=== PATIENT | male | born 1985 | race Caucasian/White ===

== ENCOUNTER 2019-06-01 16:31 | Outpatient (CLI) | payer BC ==
[2019-06-01 17:08] LABS: #Basophils 0.1 thou/uL (0.0-0.2); #Eosinphils 0.1 thou/uL (0.0-0.7); #Lymphocytes 1.4 thou/uL (1.20-3.40); #Monocytes 0.7 thou/uL (0.11-0.59); #Neutrophils 5.7 thou/uL (1.40-6.50); %Basophils 0.8 % (0.0-1.0); %Eosinophils 1.6 % (0.0-10.0); %Lymphocytes 17.8 % (21.0-51.0); %Monocytes 8.1 % (0.0-10.0); %Neutrophils 71.7 % (42.0-75.0); Mean Corpuscular HGB CONC 35.3 g/dL (32.0-36.0); Mean Corpuscular Hemoglobin 31.7 pg (27.0-31.0); Mean Corpuscular Volume 89.7 fL (78.0-98.0); Mean Platelet Volume 7.9 fL (7.4-10.4); Platelet Count 234 thou/uL (130-400); RBC Distribution Width 11.6 % (11.5-14.5); Red Blood Cell (RBC) Count 4.75 mill/uL (4.70-6.10); White Blood Cell (WBC) Count 7.9 thou/uL (4.8-10.8)
[2019-06-01 17:14] LABS: INR-International Normal Ratio 1.1; PTT 28.4 SEC (22.9-36.1); Prothrombin Time 13.8 SEC (12.0-14.7)
[2019-06-01 17:32] LABS: ALT (SGPT) 11 U/L (8-55); AST (SGOT) 14 U/L (5-34); Albumin 4.7 g/dL (3.5-5.0); Alkaline Phosphatase 44 U/L (40-110); Anion Gap 11 mmol/L (10-20); BUN (Urea Nitrogen) 13 mg/dL (8.9-20.6); Bilirubin, Total 0.5 mg/dL (0.2-1.2); Calc. Creatinine Clearance 0 mL/min (70-130); Calcium 9.5 mg/dL (7.8-10.44); Carbon Dioxide 25 mmol/L (22-29); Chloride 103 mmol/L (98-107); Estimated GFR-MDRD 80; Globulin 2.4 g/dL (2.4-3.5); Glucose 91 mg/dL (70-105); Potassium 4.1 mmol/L (3.5-5.1); Protein, Total 7.1 g/dL (6.0-8.3); Sodium 135 mmol/L (136-145)
--- NOTE | 2019-06-05 11:33 | EKG ---
Test Reason : Blood Pressure : / mmHG Vent. Rate : 063 BPM Atrial Rate : 063 BPM P-R Int : 148 ms QRS Dur : 110 ms QT Int : 436 ms P-R-T Axes : 046 062 018 degrees QTc Int : 446 ms Sinus rhythm with frequent Premature ventricular complexes Otherwise normal ECG No previous ECGs available Confirmed by Cosme WALLER ([id number]) on 06/05/2019 11:32:30 AM Referred By: KEYA Confirmed By:Cosme WALLER
== END 2019-06-01 16:32 | disposition home or self-care (01) ==
LOC: LABBT 16:31
PROVIDERS: ATTEND Internal Medicine Cardiovascular Disease
DX: Z01.818 Encounter for other preprocedural examination (principal); I49.3 Ventricular premature depolarization
CPT/HCPCS: 80053; 85025; 85610; 85730; 93005; 93010

== ENCOUNTER 2019-06-06 11:33 | Day surgery (SDC) | payer BC ==
[2019-06-01 16:20] VITALS: BMI 34.2
[2019-06-06] MEDS ORDERED: Heparin 10,000 UNITS/1 ML VIAL ONE (11:55)
[2019-06-06] MEDS ORDERED: Verapamil 5 MG/2 ML VIAL ONE (11:55)
[2019-06-06] MEDS ORDERED: Heparin (Artline) 500 ML ONE ×2 (11:56)
[2019-06-06] MEDS ORDERED: Nitroglycerin 100MG/250ML BOT 250 ML ONE (11:56)
[2019-06-06] MEDS ORDERED: Lidocaine 1% (PF) 30 ML VIAL ONE (11:56)
[2019-06-06 13:07] LABS: Cardiac Risk 3.3 (Less than 4.5)
[2019-06-06] MEDS ORDERED: Fentanyl 100 MCG/2 ML VIAL ONE (13:21)
[2019-06-06] MEDS ORDERED: Midazolam HCl 2 mg/2 ml Vial ONE (13:21)
[2019-06-06] MEDS ORDERED: Iopamidol 370 76% 100 ML VIAL ONE (20:13)
== END 2019-06-06 16:15 | disposition home or self-care (01) ==
LOC: CCL 11:33
PROVIDERS: ATTEND Internal Medicine Cardiovascular Disease
PROC: 4A023N7 Measurement of Cardiac Sampling and Pressure, Left Heart, Percutaneous Approach (ICD-10-PCS; principal; 2019-06-06)
PROC: B2111ZZ Fluoroscopy of Multiple Coronary Arteries using Low Osmolar Contrast (ICD-10-PCS; principal; 2019-06-06)
DX: I49.3 Ventricular premature depolarization (principal); R00.2 Palpitations; Z82.49 Family history of ischemic heart disease and other diseases of the circulatory system
CPT/HCPCS: 80061; 93458; 99152; C1769; J1644; J2001; J2250; J3010; Q9967

== ENCOUNTER 2020-07-11 06:35 | Outpatient (CLI) | payer OTHER ==
[2020-07-11 10:34] LABS: Hemoglobin 14.8 g/dL (14.0-18.0); Mean Corpuscular Volume 88.2 fl (80.0-100.0); Mean Platelet Volume 9.9 fl (7.4-10.4); Platelet Count 245 10x3/uL (130-400); RBC Distribution Width 12.1 % (11.5-14.5); Red Blood Cell (RBC) Count 4.93 10x6/uL (4.40-5.80); White Blood Cell (WBC) Count 5.5 10x3/uL (4.5-11.0)
[2020-07-11 10:39] LABS: Anion Gap 16 mmol/L (10-20); BUN (Urea Nitrogen) 11 mg/dL (8.9-20.6); Calc. Creatinine Clearance 0 mL/min (70-130); Calcium 9.1 mg/dL (7.8-10.44); Carbon Dioxide 24 mmol/L (22-29); Chloride 103 mmol/L (98-107); Estimated GFR-MDRD 79; Glucose 97 mg/dL (70-105); Potassium 4.6 mmol/L (3.5-5.1); Sodium 138 mmol/L (136-145)
[2020-07-11 10:46] LABS: INR-International Normal Ratio 1.1; PTT 28.2 sec (22.0-33.0); Prothrombin Time 11.2 sec (9.5-12.1)
[2020-07-11 17:38] LABS: SARS-CoV-2 MS2 Positive; SARS-CoV-2 N Gene Negative; SARS-CoV-2 S Gene Negative; SARS-CoV-2 by NAA Not Detected (NotDetected); SARS-CoV-2 orf1ab Negative
== END 2020-07-11 06:36 | disposition home or self-care (01) ==
LOC: LABBT 06:35
PROVIDERS: ATTEND Internal Medicine Nephrology
DX: Z01.818 Encounter for other preprocedural examination (principal); Z20.828 Contact with and (suspected) exposure to other viral communicable diseases; I49.3 Ventricular premature depolarization
CPT/HCPCS: 85610; 85730; 87635; 93005; 93010; U0003

== ENCOUNTER 2020-07-15 08:04 | Day surgery (SDC) | payer OTHER ==
[2020-07-12 08:39] VITALS: BMI 36.2
[2020-07-15] MEDS ORDERED: Heparin 10,000 UNITS/ 10 ML VIAL ONE (11:31)
[2020-07-15] MEDS ORDERED: Midazolam HCl 2 mg/2 ml Vial ONE (11:39)
[2020-07-15] MEDS ORDERED: Fentanyl 100 MCG/2 ML VIAL ONE ×2 (11:40→14:01)
[2020-07-15] MEDS ORDERED: Propofol 1,000 MG/100 ML VIAL IV ONE ×2 (12:04→12:56)
[2020-07-15] MEDS ORDERED: Heparin 25,000 units/D5W 500 ML ONE (12:56)
[2020-07-15] MEDS ORDERED: Isoproterenol 0.2 MG/1 ML AMP ONE (13:14)
[2020-07-15] MEDS ORDERED: Propofol 500 MG/50 ML VIAL ONE (13:30)
--- NOTE | 2020-07-15 18:21 | OP ---
DATE OF PROCEDURE: 07/15/2020 PROCEDURE PERFORMED: Electrophysiology study and radiofrequency ablation. REASON FOR PROCEDURE: Mr. Sandhu is a 35-year-old man with history of structure normal heart, very frequent PVCs, who also works as a highest occupation being firemen. He is here for EP study and ablation procedure. DESCRIPTION OF PROCEDURE: The patient received deep sedation by Anesthesia specialist. The left and right femoral veins were prepped and draped, anesthetized using subcutaneous lidocaine. Under ultrasound guidance, the femoral veins were cannulated. On the left side, an 11-Estonian sheath was used to advance an intracardiac echocardiogram probe into the right atrium, right ventricle, which was used to monitor catheter manipulation and pericardial space throughout the procedure. Also from the left femoral vein, DECANAV mapping and pacing catheter was advanced to the right atrium where 3D map of the right atrium, His bundle, CS position were . Basic EP study was performed at this point with the following findings. Baseline rhythm was sinus rhythm, frequent PVCs, which were left bundle inferior axis in morphology. The sinus cycle length was 1072 milliseconds, RI 155 milliseconds, QRS 86 milliseconds, QT 414 milliseconds, AH 375 milliseconds, HV 58 milliseconds measured. The AV Wenckebach cycle length measured at 340 milliseconds. The AV jose de jesus ERP measured at 600/260 milliseconds. No dual AV jose de jesus physiology was present. The left atrial pacing via the CS was performed. Following this, the DECANAV catheter advanced to the right ventricle and 3D map of the right ventricle obtained. Activation mapping of the PVCs was also performed. We were able to locate the earliest site in the RVOT and in the posteroseptal region where during the PVCs, we were able to see 47 milliseconds pre QRS electrograms locally. A ThermoCool SFST catheter was advanced through an 8-Estonian sheath from the right femoral vein up to the right ventricle to this location. Radiofrequency ablation was delivered, total of 9 lesion at total duration of 4 minutes and 3 seconds at 40 cruz. During the ablation, irritation of the area was seen. Also, there was good elimination of PVCs noted. At the end of the case, no more PVCs seen from this location and no other PVC morphology was noted persistently either. Heparin was administered up to 20 mcg and no PVCs were seen on and off Isuprel either. The ventricular extrastimuli was performed with 400/300-millisecond cycle with ventricular ERP measured at 400/less than 180 milliseconds. No ventricular tachycardia was induced with up to 3 ventricular extrastimuli intermittently to the refractory period. Following that, the pericardial spaces were rechecked through the intracardiac echocardiogram probe and no effusion was seen, also cardiac silhouette did not change. The patient tolerated the procedure well. No complications noted. The sheaths were pulled in the pharmaceutical laboratory technician and Vascade closure was performed in each femoral venous access sites. CONCLUSION: 1. 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 Radiofrequency ablation delivered in this area and was noted to be away from the RCA and eliminated the PVCs. 2. No ventricular tachycardia induced up to 3 ventricular extrastimuli. 3. No additional arrhythmia induced from burst atrial pacing via the CS. PLAN: Continue routine monitoring. Follow up in the office. Thank you for letting me to participate in the care of this patient. Job ID: [id number]
== END 2020-07-15 17:33 | disposition home or self-care (01) ==
LOC: SDC 08:04
PROVIDERS: ATTEND Internal Medicine Cardiovascular Disease
PROC: 4A023FZ Measurement of Cardiac Rhythm, Percutaneous Approach (ICD-10-PCS; principal; 2020-07-15)
PROC: 02K83ZZ Map Conduction Mechanism, Percutaneous Approach (ICD-10-PCS; principal; 2020-07-15)
PROC: 4A0234Z Measurement of Cardiac Electrical Activity, Percutaneous Approach (ICD-10-PCS; principal; 2020-07-15)
DX: I49.3 Ventricular premature depolarization (principal); I42.9 Cardiomyopathy, unspecified
CPT/HCPCS: 76942; 93005; 93010; 93613; 93620; 93622; 93623; 93653; 93662; C1732; C1759; J1644; J2250; J2704; J3010